=== PATIENT | male | born 1955 | race Caucasian/White ===

== ENCOUNTER 2022-07-28 14:03 | Outpatient (CLI) | payer MEDICARE, SELFPAY ==
--- NOTE | ~2022-07-28 | PE_ITS ---
EXAMINATION: PET_PETPSMAST_PT DATE: 07/28/2022 17:11 INDICATION: Prostate cancer TECHNIQUE: 5.611 mCi of pipflufolastat F-18 (18-F-DCFPyL) was administered i.v. Low dose computed to mography (CT) images were acquired from the base of the brain to the base of the brain to the proxima l thighs for attenuation correction and anatomic localization. Positron emission tomography (PET) wally ges were acquired in the same distribution beginning 70 minutes after injection. Images including fus ed PET/CT images were reconstructed in axial, coronal, and sagittal planes. Automated exposure contro l technique was employed. The dose-length product was 838.61mGy-cm. COMPARISON: None FINDINGS: Head/neck: Typical pattern of symmetric physiologic increased activity in the lacrimal, parotid and submandibula r glands as well as along the mucosa of the nasal cavity, oropharynx, nasopharynx hypopharynx and eso phagus. No pathologically enlarged cervical lymphadenopathy or suspicious foci of increased uptake in the visualized head or neck. Chest: Multiple bilateral calcified pulmonary nodules along calcified right hilar and mediastinal lymph node s consistent with old granulomatous disease. Mild discoid atelectasis in the bilateral lower lobes. N o pneumonia, suspicious pulmonary nodules, pulmonary edema or pleural effusion. Heart size is normal. Postoperative change of prior median sternotomy and coronary artery bypass grafting. There is also b een prior aortic valve repair. 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 No pathologically enlarged or PSMA avid thoracic lymphadenopathy. Bilateral gynecomastia. Abdomen/pelvis/proximal thighs: Physiologic renal accumulation and excretion of activity in the kidneys, bladder and along portions o f ureters. There are few low-attenuation and photopenic hepatic cysts the largest measuring 2.5 simil ar and 2.2 cm. Otherwise normal degree and slightly heterogenous pattern of increased uptake througho ut the liver and spleen without radiologic correlate or dominant PSMA avid lesion. The gallbladder, p ancreas and bilateral adrenal glands are normal. Moderate uptake scattered throughout the bowels with typical duodenal predominance and without radiologic correlate, also likely physiologic. Prominent i ncreased uptake throughout the prostate with maximal SUV of 55. There are at least 16 normal-sized PS MA avid retroperitoneal lymph nodes, the most cephalad in the aortocaval and left para-aortic region below level of the takeoff of the renal artery and extending caudally to the bilateral external iliac chains as well as a pararectal lymph node and a couple presacral lymph nodes. For reference the nam rectal lymph node measures 3 to 4 mm with maximal SUV of 27 and the presacral lymph nodes measure 6 m m and 5 mm with maximal SUV values of 56 and 61 respectively. The right external iliac chain lymph no de measures 10 x 6 mm with maximal SUV of 29 and the left external iliac chain lymph node measures 6 mm with maximal SUV of 7. The most intense aortocaval of the more cephalad lymph nodes measures 6 mm with maximal SUV of 20. No other abnormal foci of increased uptake or pathologically enlarged lymphad enopathy in the abdomen, pelvis or proximal thighs. Musculoskeletal: No suspicious lytic, blastic or PSMA avid bone lesions. IMPRESSION: 1. Prominent activity in the prostate consistent with provided history of prostate cancer with multip le normal sized but likely metastatic PSMA avid retroperitoneal lymph nodes in the pelvis and lower a bdomen. Reviewed, dictated and finalized at location A. OPERATOR IMPRESSION: 1. Prominent activity in the prostate consistent with provided history of prost ate cancer with multiple normal sized but likely met
== END 2022-07-28 14:04 | disposition home or self-care (01) ==
PROVIDERS: Visit Provider Urology
DX: C61 Malignant neoplasm of prostate (principal)
CPT/HCPCS: 78815; A9595

== ENCOUNTER 2022-08-30 09:07 | Outpatient (CLI) | payer MEDICARE, SELFPAY ==
[2022-08-30 09:41] LABS: Basophils Percent Auto 0.7 % (0.2-1.2); Eosinophils Absolute Auto 0.1 K/mm3 (0-0.3); Eosinophils Percent Auto 1.2 % (0-4.4); Hematocrit 46.4 % (42.0-52.0); Hemoglobin 15.8 g/dL (14.0-18.0); Immature Granulocyte Absolute 0.02 K/mm3 (0.00-0.031); Immature Granulocyte Percent A 0.3 % (0-0.5); Lymphocytes Absolute Auto 1.63 K/mm3 (0.9-3.2); Lymphocytes Percent Auto 27.6 % (18.3-44.2); Mean Corpuscular HGB Conc 34.1 g/dl (32-36); Mean Corpuscular Hemoglobin 31.9 pg (26-34); Mean Corpuscular Volume 93.7 fl (80-100); Mean Platelet Volume 10.3 fl (7.4-10.4); Monocytes Absolute Auto 0.5 K/mm3 (0.1-0.6); Monocytes Percent Auto 8.8 % (2.6-8.5); Neutrophils Absolute Auto 3.6 K/mm3 (1.3-6.7); Neutrophils Percent Auto 61.4 % (45.5-73.1); Platelet Count Result 168 k/mm3 (150-375); Red Blood Count 4.95 M/mm3 (4.6-6.20); Red Cell Distribution Width 12.5 % (11.5-14.5); White Blood Count 5.9 K/mm3 (4.5-10.0)
[2022-08-30 09:51] LABS: Anion Gap 3 mmol/L (8-16); Blood Urea Nitrogen 21 mg/dL (9-20); Carbon Dioxide 30 mmol/L (22-30); Chloride 108 mmol/L (98-107); Estimated Glomerular Filt Rate 55; Glucose 95 mg/dL (65-110); Potassium 5.1 mmol/L (3.4-5.0); Sodium 141 mmol/L (137-145)
[2022-08-30 09:54] LABS: INR 1.8; Partial Thromboplastin Time 33.4 SECONDS (22.3-36.8); Prothrombin Time 20.5 Seconds (11.1-14.7)
== END 2022-08-30 09:08 | disposition home or self-care (01) ==
PROVIDERS: Anesthesiology; Visit Provider Surgery
DX: C61 Malignant neoplasm of prostate (principal); Z79.899 Other long term (current) drug therapy; Z79.01 Long term (current) use of anticoagulants; Z01.818 Encounter for other preprocedural examination
CPT/HCPCS: 36415; 80048; 85025; 85610; 85730

== ENCOUNTER 2022-09-02 01:00 | Day surgery (SDC) | payer MEDICARE, SELFPAY ==
[2022-08-29 10:53] VITALS: BMI 27.6
--- NOTE | 2022-08-29 11:18 | PC.NURSE ---
PRE-OP INSTRUCTIONS, PLEASE READ CAREFULLY Report to the Outpatient Waiting Room, entrance under the green pavilion located off [facility], at time _0600_ on date _09/02/22_. Planned Procedure Time: _0730_. Time changes happen often and if your time is changed the preop area will call you the afternoon before. - You and your visitor will be asked to self-screen and do not enter if you have any COVID symptoms. - Only one visitor is requested with a max of two and NO children visitors are allowed at this time. - The patient visitor may be requested to leave or wait in car when not with patient due to distancing restrictions. - A mask is optional within the hospital at this time. Patients may have clear liquids (water, carbonated beverages, clear teas, apple juice) until 3 hours prior to surgery (0430 AM) with a maximum of 20 ounces. - No food from midnight until time of surgery Take the following medications with a SIP of water the morning of surgery: _AMLODIPINE, CARVEDILOL_ DO NOT STOP ANY OF YOUR OTHER PRESCRIPTION MEDICATIONS PRIOR TO SURGERY ?EXCEPT THE FOLLOWING Medications to discontinue per DR. BRINK - _PT STATES LAST DOSE OF COUMADIN TAKEN 08/28/22_ Please no make-up, nail turkmen, hairspray, perfume, deodorant, or body powder the day of surgery. No jewelry (including any body piercings) or valuables the day of surgery, leave them at home. Please take a shower or bath the night before, or the morning of, surgery with an antibacterial soap. Wear comfortable, loose fitting clothing. - Jewelry must be removed prior to entering the operating room. Rings and piercings that are not removed may be cut off. - The hospital will not accept responsibility for valuables. - Please leave all valuables, including medications, at home the day of surgery. If you are going home after surgery, a licensed taxi driver must drive you home. - NO public transportation without another adult if you receive anesthesia. - We recommend that an adult stay with you for 24 hours following discharge. - We also recommend that you do not drive, make important decision, drink alcoholic beverages, or take any drugs that were not prescribed by your health care provider for at least 24 hours after your discharge time. Follow any additional instructions given to you from your surgeon. If you or anyone in your household have experienced Covid symptoms in the past week, please notify your surgeon or the nurse liaison at the phone number below for possible testing. Telephone instructions given to _PATIENT_and asked if any additional questions and then verbalized understanding. Patient advised to call surgeon office or pre surgery nurse liaison [phone] if any additional questions.
--- NOTE | ~2022-09-02 | XR_ITS ---
EXAMINATION: XR chest port-a-cath/central DATE: 09/02/2022 08:53 INDICATION: Port placement. TECHNIQUE: A single frontal view of the chest was obtained. COMPARISON: PET/CT 07/28/2022 FINDINGS: Calcified pulmonary nodules are consistent with old granulomatous disease. There is mild at electasis in left lower lung zone. No pleural effusion or pneumothorax. The heart size is normal. Med dedrick sternotomy wires and mediastinal surgical clips are seen, likely from prior coronary artery bypas s grafting. There are prominent paracardial fat pads. There is a left subclavian port with tip at sup erior cavoatrial junction. The catheter is deviated between the clavicle and first rib. IMPRESSION: 1. Port tip at superior cavoatrial junction. Reviewed, dictated and finalized at location A.
--- NOTE | ~2022-09-02 | XR_ITS ---
EXAMINATION: XR fl guide central line place DATE: 09/02/2022 08:21 INDICATION: Port placement. TECHNIQUE: A single intraoperative fluoroscopic view of the chest was obtained. I was not present. Fl uoroscopy exposure time was 16 seconds. COMPARISON: PET/CT 07/28/2022 FINDINGS: There is a left-sided central venous catheter with tip at superior cavoatrial junction. Med dedrick sternotomy wires and mediastinal surgical clips are seen, likely from prior coronary artery bypas s grafting. IMPRESSION: 1. Catheter tip at superior cavoatrial junction. Reviewed, dictated and finalized at location A.
[2022-09-02 06:21] VITALS: BP 138/74; PULSE 65; RESP 20; TEMP 36.4; O2SAT 100
--- NOTE | 2022-09-02 06:35 | P.PNAN_ITS ---
Anes - Initial Pre Proc Eval Procedure: Operation Date: 09/02/22 07:30 Proposed Procedures p Insertion Patricia Cath - Cheo Ledesma MD Date/Time: 09/02/22 06:35 Surgeon: Cheo Ledesma MD Pre Op Diagnosis: Prostate Cancer Patient Data Age: 67 Gender: M Height: 1.88 m Weight: 97.72 kg Allergies Allergy/AdvReac Type Severity Reaction Status Date / Time No Known Allergies Allergy Verified 08/29/22 10:46 Home Medications Medication Instructions Recorded Confirmed Type amlodipine 5 mg tablet 5 mg QAM 08/29/22 09/01/22 History atorvastatin 40 mg tablet 40 mg HS 08/29/22 09/01/22 History carvedilol 6.25 mg tablet 6.25 mg BID 08/29/22 09/01/22 History darolutamide 300 mg tablet (Nubeqa) 600 mg PO BID 08/29/22 09/01/22 History hydrochlorothiazide 25 mg tablet 25 mg QAM 08/29/22 09/01/22 History losartan 100 mg tablet 100 mg QAM 08/29/22 09/01/22 History relugolix 120 mg tablet (Orgovyx) 120 mg PO QAM 08/29/22 09/01/22 History tamsulosin 0.4 mg capsule 0.4 mg PO HS 08/29/22 09/01/22 History warfarin 4 mg tablet 8 mg HS 08/29/22 09/01/22 History prednisone 5 mg tablet 5 mg PO BID 09/01/22 09/01/22 History Patient hx anesthesia problems: none Family hx anesthesia problems: none Results Review: All pre-operative results and documents have been reviewed as part of the pre- operative evaluation. FORMERLY [facility], [facility] Past Medical History Medical History (Updated 09/02/22 @ 06:35 by Ezequiel Elam MD) ZAKI (obstructive sleep apnea) Prostate CA Surgical History Surgical History H/O aortic valve replacement Social History Social History Smoking packs per day: 1 Smoking cigarettes per day: 20.0 Years smoked: 15 Smoking pack-years: 15.00 Smoking status: Former smoker Tobacco type: cigarettes Second hand tobacco smoke exposure: No Smoking end date: 06/19/89 Alcohol intake: current Alcohol use details: 2-3 DRINKS/MONTH Substance use: never Substance use type: does not use Living arrangements: alone Spiritual care concerns: No Anes - Eval Final PreProcedure Day of Procedure 09/02/22 06:35 Patient weight: overweight Heart: regular rate and rhythm Lungs: clear to auscultation Airway: Mallampati scale class II Neurological: alert and oriented Last oral intake: >/= 8 hours ASA classification: III Emergent: no Anesthetic plan: proceed Anesthesia type and monitoring: general GIVS and standard monitoring Results Review: All pre-operative results and documents have been reviewed as part of the pre- operative evaluation. Informed Consent: The patient's anesthetic plan and its attendant risks and benefits were discussed with the patient/family/POA. Questions were solicited and answers provided to the satisfaction of the patient/family/POA.
[2022-09-02] MEDS: LACTATED RINGERS 1,000 ML 30 ML IV CONT (06:55)
--- NOTE | 2022-09-02 07:11 | PM.IMHP ---
H&P: HPI History of Present Illness Date/Time: 09/02/22 07:11 Chief Complaint: Prostate CA Narrative: Pt with prostate CA set to get chemotherapy. Presents for placement of a portacatheter for the chemo. Hx of aortic valve replacement and is usually on Coumadin. He is currently being bridged with Lovenox but has not had any in the last 12 hrs. Review of Systems Review of Systems: The remainder of the review of systems to include constitutional, HEENT, cardiovascular, respiratory, GI, , integumentary, musculoskeletal, endocrine, immunologic, hematologic, psychiatric, and neurologic are all negative except for which is mentioned above in the HPI. FORMERLY [facility] Past Medical History Medical History ZAKI (obstructive sleep apnea) Prostate CA Surgical History Surgical History H/O aortic valve replacement Social History Social History Smoking packs per day: 1 Smoking cigarettes per day: 20.0 Years smoked: 15 Smoking pack-years: 15.00 Smoking status: Former smoker Tobacco type: cigarettes Second hand tobacco smoke exposure: No Smoking end date: 06/19/89 Alcohol intake: current Alcohol use details: 2-3 DRINKS/MONTH Substance use: never Substance use type: does not use Living arrangements: alone Spiritual care concerns: No Meds Home Medications and Allergies Home Medications Medication Instructions Recorded Confirmed Type amlodipine 5 mg tablet 5 mg [facility] 08/29/22 09/02/22 History atorvastatin 40 mg tablet 40 mg 08/29/22 09/02/22 History carvedilol 6.25 mg tablet 6.25 mg BID 08/29/22 09/02/22 History darolutamide 300 mg tablet (Nubeqa) 600 mg PO BID 08/29/22 09/02/22 History hydrochlorothiazide 25 mg tablet 25 mg QA 08/29/22 09/02/22 History losartan 100 mg tablet 100 mg QA 08/29/22 09/02/22 History relugolix 120 mg tablet (Orgovyx) 120 mg PO QA 08/29/22 09/02/22 History tamsulosin 0.4 mg capsule 0.4 mg PO 08/29/22 09/02/22 History warfarin 4 mg tablet 8 mg HS 08/29/22 09/01/22 History prednisone 5 mg tablet 5 mg PO BID 09/01/22 09/02/22 History Allergies Allergy/AdvReac Type Severity Reaction Status Date / Time No Known Allergies Allergy Verified 09/02/22 07:11 Exam Const: General: comfortable and no acute distress Neck: Neck: supple and no JVD Resp: Effort & Inspection: normal respiratory effort Auscultation: clear to auscultation bilaterally Cardio: Rate: regular rate Rhythm: regular rhythm GI: GI Palp: Yes Soft to palpation, No Firmness to palpation present (GI), No Tenderness to palpation present (GI), No Guarding due to palpation present (GI) and No Hernia present Other: Benign abd exam. Neuro: General: gait normal Speech: normal speech Sensory Exam: normal sensation Psych: Mental Status: mental status grossly normal Affect: normal affect Assessment and Plan Assessment and plan (1) Prostate CA: Code(s): C61 - Malignant neoplasm of prostate Status: Acute Assessment and Plan: Pt with prostate CA who is set to start chemotherapy. Will proceed with portacatheter placement today. Risks, benefits, indications, and expected outcomes discussed. Specific risk of iatrogenic pneumothorax and needing a chest tube placed and bleeding needing blood transfusion discussed.
[2022-09-02 07:16] LABS: INR 1.2; Prothrombin Time 14.4 Seconds (11.1-14.7)
--- NOTE | 2022-09-02 07:17 | WPDHPUPDATE1 ---
History and Physical Update Update Date/Time: 09/02/22 07:17 History and Physical has been reviewed, including an updated exam of the patient. There are NO changes in the patient's condition. Risks, benefits, and alternatives have been discussed and questions answered. Patient agrees to proceed with procedure.
[2022-09-02] MEDS: ceFAZolin 2 GM/D5W 50 ML 2 GM/50 ML BAG IVPB (07:29)
--- NOTE | 2022-09-02 07:35 | SUR.PREOP ---
0721-DR. BRINK AWARE OF PT RESULT, MAY PROCEED TO OR.
[2022-09-02] MEDS: BUPivacaine HCL 0.5% PF 30 ML VIAL INFILTRATE (07:53)
[2022-09-02] MEDS: HEPARIN SODIUM 1,000 UNITS/ML VIAL 1000 UNITS IV PUSH (08:15)
[2022-09-02] MEDS: HEPARIN SODIUM 5,000 UNITS/ML VIAL 5000 UNITS IRRIGATION (08:15)
[2022-09-02] MEDS: LIDO 1%/EPINEPHRINE 1:100,000 50 ML VIAL 30 ML INFILTRATE (08:20)
--- NOTE | 2022-09-02 08:40 | W.PM.PROC2 ---
Procedure Note - Detailed Date of Procedure 09/02/22 Pre-op Diagnosis Prostate Cancer Post-op Diagnosis Same Procedure Performed Placement of left subclavian vein single-lumen port catheter with intraoperative fluoroscopy. Surgeon Cheo Ledesma MD Camera Operator Tammy Whalen MECHANIST Anesthesia MAC Indications Patient is a 67-year-old gentleman who is to undergo chemotherapy treatments for prostate cancer. He presents now for placement of shoshana catheter. Findings None. Description of Procedure After informed consent was obtained patient was brought to the operating room was placed supine position and IV sedation with LMA was administered by anesthesia. Time-out was then performed correctly identifying the patient as well as procedure to be performed. He was given Ancef for perioperative IV antibiotics. We approach placement the shoshana catheter into the left-sided upper chest region. I 1st attempted placement of the catheter into the internal jugular vein but was unsuccessful on the passes of the needle to cannulate left subclavian vein. I then switched to cannulated the subclavian vein and was successful in cannulating the left subclavian 1st pass without difficulty. There was prompt return of dark venous appearing blood. A guidewire was then advanced through the needle into the left subclavian vein and down into his to superior vena cava. Intraoperative fluoroscopy was then used to visualize the tip of the guidewire and it was in the proper position in the superior vena cava. I then created the subcutaneous port pocket in the left upper anterior chest just below the medial 3rd of the clavicle. A transverse incision was made the scalpel dissection was carried down through the subcutaneous tissues electrocautery to the anterior right pectoralis fascia. Then with blunt finger dissection created subcu port pocket in this plane. I then advanced a dilator breakaway sheath over the guidewire. The dilator and wire were removed leaving the sheath in place. A 9.6 Bulgarian single-lumen catheter was advanced through the sheath into the left subclavian vein insufflated down into the right atrium via the superior vena cava. Intraoperative fluoroscopy was then used once more to visualize the tip of the catheter and then I pulled back on the catheter until the tip was in the atriocaval junction. The catheter was then cut to the appropriate length the skin level and attached to the Smart Port. The port was then secured in subcutaneous port pocket with 3-0 Prolene sutures. I then accessed the port it aspirated blood easily and was flushed with heparinized saline solution. I irrigated the subcutaneous tissues in the port pocket with saline solution. Hemostasis was good. I then injected 1% lidocaine mixed with 0.5% Marcaine around the incision for local anesthetic effect. I then close incision utilizing interrupted 3-0 Vicryl sutures in subcutaneous tissues. The skin edges were approximated utilizing a running subcuticular 4 Monocryl suture. I then accessed the port percutaneously and again bhavana back blood easily and was flushed with 5000units of heparin IV. The incision was cleaned and then skin glue was applied. The patient tolerated the procedure well no complications. All sponges, needles, and instrument counts were correct at the end procedure. EBL was _15__cc. The patient was awakened and taken to recovery in stable and satisfactory condition. Postprocedure portable chest x-ray is pending at the time of dictation. Implants 9.6 Bulgarian single-lumen catheter attached to Smart Port Estimated Blood Loss 15 Drains No Packing No Pathology None sent Complications No immediate complications Condition Stable Disposition PACU [facility] Billing Surgery - Charge Forward: Surgery Billing
[2022-09-02 08:41] VITALS: BP 134/80; PULSE 91; RESP 14; O2SAT 98
[2022-09-02 09:10] VITALS: BP 133/76; PULSE 89; RESP 14; O2SAT 97
[2022-09-02 09:40] VITALS: BP 127/73; PULSE 63; RESP 14
== END 2022-09-02 10:07 | disposition home or self-care (01) ==
PROVIDERS: Visit Provider Surgery
PROC: (CPT 36561; principal; 2022-09-02 07:30)
DX: C61 Malignant neoplasm of prostate (principal); G47.33 Obstructive sleep apnea (adult) (pediatric); Z95.4 Presence of other heart-valve replacement; Z79.01 Long term (current) use of anticoagulants; Z87.891 Personal history of nicotine dependence
CPT/HCPCS: 36561; 36415; 77001; 80048; 85025; 85610; 85730; C1788; J0690; J1644; J2250; J2405; J2704; J3010; J7030; J7120

== ENCOUNTER 2022-11-01 13:04 | Outpatient (CLI) | payer MEDICARE, SELFPAY ==
--- NOTE | ~2022-11-01 | PE_ITS ---
EXAMINATION: PET_PETPSMAST_PT DATE: 11/01/2022 15:40 INDICATION: Prostate cancer restaging TECHNIQUE: 9.289 mCi of pipflufolastat F-18 (18-F-DCFPyL) was administered i.v. Low dose computed to mography (CT) images were acquired from the base of the brain to the base of the brain to the proxima l thighs for attenuation correction and anatomic localization. Positron emission tomography (PET) wally ges were acquired in the same distribution beginning 106 minutes after injection. Images including fu sed PET/CT images were reconstructed in axial, coronal, and sagittal planes. Automated exposure contr ol technique was employed. The dose-length product was 879.68mGy-cm. COMPARISON: 07/29/2022 FINDINGS: Head/neck: Typical pattern of symmetric physiologic increased activity in the lacrimal, parotid and submandibula r glands as well as along the mucosa of the nasal and oral cavities, the bri-, naso- and hypopharynx, the glottis and esophagus. No pathologically enlarged cervical lymphadenopathy or suspicious foci of increased uptake in the visualized head or neck. Chest: A few scattered small calcified pulmonary nodules along with calcified right hilar and mediastinal ly mph nodes consistent with old granulomatous disease. 4 mm nodule which is not definitively calcified superior segment of the right lower lobe without evident PSMA activity. Mild bibasilar and dependent atelectasis. No pneumonia, pulmonary edema or pleural effusion. Heart size is normal. Atherosclerotic coronary artery calcifications unchanged prior mediastinal main coronary artery bypass grafting. The re is also been prior aortic valve repair. Left subclavian central venous port catheter with distal t ip at the superior cavoatrial junction. Unchanged mild fusiform aneurysm of the ascending thoracic ao rta which measures up to 4.2 cm. No pathologically enlarged or PSMA avid thoracic lymphadenopathy. M ild bilateral gynecomastia. Abdomen/pelvis/proximal thighs: Physiologic renal accumulation and excretion of activity in the kidneys, bladder and along portions o f ureters. Photopenic defects associated with a couple low-attenuation hepatic cysts the largest 2 me asuring 2.8 cm and 2.5 cm which is not significantly changed. Otherwise normal degree and slightly he terogenous pattern of increased uptake throughout the liver and spleen without radiologic correlate o r dominant PSMA avid lesion. The gallbladder, pancreas and bilateral adrenal glands are normal. Moder ate uptake scattered throughout the bowels with typical duodenal and proximal jejunal predominance an d without radiologic correlate, also likely physiologic. There is decreased size and degree of FDG up take in the prostate which previously measured 4.4 x 4.2 cm with maximal severe 54.9 to currently jorge suring 2.8 x 3.1 cm with maximal SUV of 12.5 consistent with interval response to treatment. Also con sistent with interval response to treatment is resolution of the prior abnormal PSMA uptake associate d with majority of the 16 previously noted retroperitoneal lymph nodes which appears subjectively dec reased in size. The majority the remaining too small for accurate measurement. The previous largest P SA may avid lymph node along the right external iliac chain which measured 10 x 6 mm with maximal SUV of 29 has decreased to 5 x 3 mm with maximal SUV of 5.4. The maximal SUV of the previously noted 6 m m left external iliac chain node has decreased from 7.2 to currently 3.5 and measures 4 mm. No other new abnormal foci of increased uptake or pathologically enlarged lymphadenopathy in the abdomen, pelv is or proximal thighs. Musculoskeletal: No suspicious lytic, blastic or PSMA abdomen bone lesions. IMPRESSION: 1. Interval decrease in size of the prostate and significant decrease in the degree of prostatic PSMA uptake consistent with response to treatment of a reported primary prostate cancer. 2. Decrease in size in
== END 2022-11-01 13:05 | disposition home or self-care (01) ==
PROVIDERS: Visit Provider Internal Medicine Hematology & Oncology
DX: C61 Malignant neoplasm of prostate (principal)
CPT/HCPCS: 78815; A9595

== ENCOUNTER 2023-01-06 08:41 | Outpatient (CLI) | payer MEDICARE, SELFPAY ==
--- NOTE | ~2023-01-06 | CT_ITS ---
EXAMINATION: CT abdomen pelvis w con DATE: 01/06/2023 09:17 INDICATION: Prostate cancer TECHNIQUE: Computed tomography (CT) of the abdomen and pelvis was performed with 100 CC Omnipaque 350 intravenous contrast. Automated exposure control and iterative reconstruction technique were employe d. Exam dose: 998.24 mGy-cm total exam DLP. COMPARISON: 11/01/2022 PET/CT [facility] FINDINGS: Bilateral calcified pulmonary granulomas consistent with old granulomatous disease. Mild di scoid atelectasis or scarring at the lung bases, left greater than right. Status post sternotomy and aortic valve replacement. Cardiomegaly. No pericardial effusion. Retained epicardial pacemaker wires. Mild gynecomastia. Small sliding hiatal hernia. There are numerous hepatic cysts of variable size, the largest approximately 2.6 cm. No suspicious he patic space-occupying mass lesion is noted. The gallbladder is present. No gallbladder wall thickening or pericholecystic fluid or fat stranding. No bile duct or pancreatic duct dilatation. No pancreatic mass lesion or calcification. The spleen ap pears normal. Normal morphology of the adrenal glands. No renal mass lesion or urinary tract calculus or hydroureteronephrosis. Since 11/01/2022 there is new prominent left periureteral soft tissue fluid and stranding particularly at the L5-S1 level, extending laterally into the left lower quadrant. The urinary bladder is unremarkable. Mild prostate enlargement. Small bilateral fat-containing inguinal hernias and very small fat-containing umbilical hernia. There is abdominal aortic calcification and calcification at the origins of the superior mesenteric a nd renal arteries and inferior mesenteric artery. No abdominal aortic aneurysm. No intraperitoneal or retroperitoneal or pelvic mass lesion or adenopathy or ascites is detected. No suspicious osteolytic or osteoblastic lesions. IMPRESSION: Prominent left periureteral fluid/stranding, extending into the left lower quadrant, new since 11/01/2022 No interval abdominal or pelvic mass or lymphadenopathy is noted since 11/01/2022 Reviewed, dictated and finalized at [facility]. Reviewed, dictated and finalized at location B. IMPRESSION: Prominent left periureteral fluid/stranding, extending into the le ft lower quadrant, new since 11/01/2022 No interval abdominal or pelvic mass or lymphadenopathy is noted since 3
== END 2023-01-06 08:42 | disposition home or self-care (01) ==
PROVIDERS: Referring Provider Urology; Visit Provider Internal Medicine Hematology & Oncology
DX: C61 Malignant neoplasm of prostate (principal)
CPT/HCPCS: 74177; Q9967

== ENCOUNTER 2023-02-23 03:52 | Day surgery (SDC) | payer MEDICARE, SELFPAY ==
[2023-02-21 14:45] VITALS: BMI 27.7
--- NOTE | 2023-02-21 15:09 | PC.NURSE ---
Report to the Outpatient Waiting Room, entrance under the green pavilion located off [facility], at time __11:15AM on date __02/23/23 . Planned Procedure Time: __1:15PM . Time changes happen often and if your time is changed the preop area will call you the afternoon before. - You and your visitor will be asked to self-screen and do not enter if you have any COVID symptoms. - A mask is optional within the hospital at this time. Patients may have clear liquids (water, carbonated beverages, clear teas, apple juice) until 3 hours prior to surgery with a maximum of 20 ounces. - No food from midnight until time of surgery. Take the following medications with a SIP of water the morning of surgery: __AMLODIPINE, CARVEDILOL, CEPHALEXIN DO NOT STOP ANY OF YOUR OTHER PRESCRIPTION MEDICATIONS PRIOR TO SURGERY ?EXCEPT THE FOLLOWING Medications to discontinue per physician ___HOLD COUMADIN 5 DAYS PRE-OP- LAST DOSE 02/17/23 HOLD ALL VITAMINS/SUPPLEMENTS 3 DAYS PRE-OP- LAST DOSE 02/20/23 Please no make-up, nail scottish, hairspray, perfume, deodorant, or body powder the day of surgery. No jewelry (including any body piercings) or valuables the day of surgery, leave them at home. Please take a shower or bath the night before, or the morning of, surgery with an antibacterial soap. Wear comfortable, loose fitting clothing. Children are encouraged to wear pajamas. - Jewelry must be removed prior to entering the operating room. Rings and piercings that are not removed may be cut off. - The hospital will not accept responsibility for valuables. - Please leave all valuables, including medications, at home the day of surgery. If you are going home after surgery, a licensed driver merchandiser must drive you home. - NO public transportation without another adult if you receive anesthesia. - We recommend that an adult stay with you for 24 hours following discharge. - We also recommend that you do not drive, make important decision, drink alcoholic beverages, or take any drugs that were not prescribed by your health care provider for at least 24 hours after your discharge time. Follow any additional instructions given to you from your surgeon. If you or anyone in your household have experienced Covid symptoms in the past week, please notify your surgeon or the nurse liaison at the phone number below for possible testing. Telephone instructions given to __PATIENT and asked if any additional questions and then verbalized understanding. Patient advised to call surgeon office or pre surgery nurse liaison [phone] if any additional questions.
--- NOTE | 2023-02-21 16:42 | PM.SD2 ---
Same Day Admit/Disch: HPI History of Present Illness Chief complaint: Port-A-Cath dysfunction Narrative: Brenden Shankar is a 67 year old male who was diagnosed with stage IV prostate cancer. He had a left subclavian Port-A-Cath placed last August. He had been using it for chemotherapy but started experiencing pain. His oncologist noticed some swelling and redness associated with the Port-A-Cath. He has not had fever or chills. He was started on cephalexin and is taken to surgery now for Port-A-Cath removal. COUNTS INCLUDE 234 BEDS AT THE [facility] Past Medical History Medical History (Updated 02/23/23 @ 15:01 by Mohan Aguilera MD) ZAKI (obstructive sleep apnea) Prostate CA Surgical History Surgical History (Updated 02/23/23 @ 15:01 by Mohan Aguilera MD) H/O aortic valve replacement Port-A-Cath in place Placement of left subclavian vein single-lumen port catheter with intraoperative fluoroscopy on 09/02/22. Family History Family History Father Hypertension Heart disease Cerebrovascular accident Mother Hypertension Heart disease Sibling Heart disease Social History Social History Smoking packs per day: 1 Smoking cigarettes per day: 20.0 Years smoked: 18 Smoking pack-years: 18.00 Smoking status: Former smoker Tobacco type: cigarettes Second hand tobacco smoke exposure: No Smoking end date: 12/17/94 Alcohol intake: current Alcohol use details: 2-3 DRINKS/MONTH Substance use: never Substance use type: does not use Lack of Transportation: No Lack of Food: Never True Current Housing: I Have Housing Concerned About Future Housing: No Difficulty Paying Gas/Electric Bills: No Difficulty Paying for Meds: No Currently Unemployed: No Education: High School Diploma/GED Difficulty w/ Childcare or Family Care: No Living arrangements: alone Gender identity (if verbalized by the patient): Male Sexual Orientation (if Verbalized by the Patient): Straight or Heterosexual Spiritual care concerns: No Same Day Admit/Disch: Med Pre-admit Medications Home Medications Medication Instructions Recorded Confirmed Type amlodipine 5 mg tablet 5 mg PO QAM 08/29/22 02/23/23 History atorvastatin 40 mg tablet 40 mg PO HS 08/29/22 02/23/23 History carvedilol 6.25 mg tablet 6.25 mg PO BID 08/29/22 02/23/23 History darolutamide 300 mg tablet (Nubeqa) 600 mg PO BID 08/29/22 02/23/23 History losartan 100 mg tablet 100 mg PO QAM 08/29/22 02/23/23 History relugolix 120 mg tablet (Orgovyx) 120 mg PO QAM 08/29/22 02/23/23 History tamsulosin 0.4 mg capsule 0.4 mg PO HS 08/29/22 02/23/23 History warfarin 4 mg tablet 8 mg PO DAILY 08/29/22 02/23/23 History mupirocin 2 % topical ointment 1 applic topical .COMPLEX #22 grams 12/16/22 02/23/23 Rx aspirin 81 mg tablet,delayed 162 mg PO DAILY 02/21/23 02/23/23 History release cholecalciferol (vitamin D3) 50 50 mcg PO DAILY 02/21/23 02/23/23 History mcg (2,000 unit) capsule lactobacillus combination no.8 3 3 cell PO DAILY 02/21/23 02/23/23 History billion cell capsule warfarin 1 mg tablet 1 mg PO 3XW 02/21/23 02/23/23 History zinc gluconate 30 mg tablet 30 mg PO DAILY 02/21/23 02/23/23 History oxycodone-acetaminophen 5 mg-325 0.5 - 1 tablet PO Q6H PRN pain #15 02/23/23 Rx mg tablet tabs Review of Systems Review of Systems All systems reviewed & are unremarkable except as noted in HPI and below (HPI and those items noted below) Constitutional Constitutional: Denies chills and Denies fever(s) Cardiovascular Cardiovascular: Denies chest pain, Denies diaphoresis, Denies dyspnea and Denies paroxysmal nocturnal dyspnea Respiratory Respiratory: Denies chest congestion, Denies cough and Denies dyspnea Integumentary/Breasts Skin/Breast: Denies lesions and Denies rash Exam Const: General: comfortable, no acute distress, alert and awake HENMT: Head: normocephal
[2023-02-23 11:10] VITALS: BP 152/79; PULSE 69; RESP 18; TEMP 36.4; O2SAT 99
[2023-02-23] MEDS: LACTATED RINGERS 1,000 ML 30 ML IV CONT (12:08)
[2023-02-23 12:30] LABS: INR 1.1; Prothrombin Time 14.3 Seconds (11.1-14.7)
[2023-02-23 12:31] LABS: Partial Thromboplastin Time 28.2 SECONDS (22.3-36.8)
--- NOTE | 2023-02-23 12:42 | WPDANESEPPF ---
Anes - Initial Pre Proc Eval Procedure: Operation Date: 02/23/23 13:15 Proposed Procedures p Removal Patricia Cath - Mohan Aguilera MD Date/Time: 02/23/23 12:42 Surgeon: Mohan Aguilera MD Pre Op Diagnosis: Port-A-Cath dysfunction Patient Data Age: 67 Gender: M Height: 1.88 m Weight: 99.8 kg Last Vital Signs Temp 97.6 F 02/23/23 11:10 Pulse 69 02/23/23 11:10 Resp 18 02/23/23 11:10 BP 152/79 H 02/23/23 11:10 Pulse Ox 99 02/23/23 11:10 O2 Del Method Room Air 02/23/23 11:10 Allergies Allergy/AdvReac Type Severity Reaction Status Date / Time No Known Allergies Allergy Verified 02/23/23 11:51 Home Medications Medication Instructions Recorded Confirmed Type amlodipine 5 mg tablet 5 mg PO QAM 08/29/22 02/23/23 History atorvastatin 40 mg tablet 40 mg PO HS 08/29/22 02/23/23 History carvedilol 6.25 mg tablet 6.25 mg PO BID 08/29/22 02/23/23 History darolutamide 300 mg tablet (Nubeqa) 600 mg PO BID 08/29/22 02/23/23 History losartan 100 mg tablet 100 mg PO QAM 08/29/22 02/23/23 History relugolix 120 mg tablet (Orgovyx) 120 mg PO QAM 08/29/22 02/23/23 History tamsulosin 0.4 mg capsule 0.4 mg PO HS 08/29/22 02/23/23 History warfarin 4 mg tablet 8 mg PO DAILY 08/29/22 02/23/23 History mupirocin 2 % topical ointment 1 applic topical .COMPLEX #22 grams 12/16/22 02/23/23 Rx aspirin 81 mg tablet,delayed 162 mg PO DAILY 02/21/23 02/23/23 History release cephalexin 500 mg capsule 500 mg PO QID 02/21/23 02/23/23 History cholecalciferol (vitamin D3) 50 50 mcg PO DAILY 02/21/23 02/23/23 History mcg (2,000 unit) capsule lactobacillus combination no.8 3 3 cell PO DAILY 02/21/23 02/23/23 History billion cell capsule warfarin 1 mg tablet 1 mg PO 3XW 02/21/23 02/23/23 History zinc gluconate 30 mg tablet 30 mg PO DAILY 02/21/23 02/23/23 History Laboratory Tests 02/23/23 12:08 PT 14.3 Seconds (11.1-14.7) INR 1.1 APTT 28.2 SECONDS (22.3-36.8) Patient hx anesthesia problems: none Family hx anesthesia problems: none Results Review: All pre-operative results and documents have been reviewed as part of the pre-operative evaluation. REPLACED BY [facility] Past Medical History Medical History ZAKI (obstructive sleep apnea) Prostate CA Surgical History Surgical History H/O aortic valve replacement Port-A-Cath in place Placement of left subclavian vein single-lumen port catheter with intraoperative fluoroscopy on 09/02/22. Family History Family History Father Hypertension Heart disease Cerebrovascular accident Mother Hypertension Heart disease Sibling Heart disease Social History Social History Smoking packs per day: 1 Smoking cigarettes per day: 20.0 Years smoked: 18 Smoking pack-years: 18.00 Smoking status: Former smoker Tobacco type: cigarettes Second hand tobacco smoke exposure: No Smoking end date: 12/17/94 Alcohol intake: current Alcohol use details: 2-3 DRINKS/MONTH Substance use: never Substance use type: does not use Lack of Transportation: No Lack of Food: Never True Current Housing: I Have Housing Concerned About Future Housing: No Difficulty Paying Gas/Electric Bills: No Difficulty Paying for Meds: No Currently Unemployed: No Education: High School Diploma/GED Difficulty w/ Childcare or Family Care: No Living arrangements: alone Spiritual care concerns: No Anes - Eval Final PreProcedure Day of Procedure 02/23/23 12:42 Patient weight: normal Heart: regular rate and rhythm Lungs: clear to auscultation Airway: Mallampati scale class II Neurological: alert and oriented Last oral intake: >/= 8 hours ASA classification: III Emergent: no Anesthetic plan: proceed Anesthesia type and chris
--- NOTE | 2023-02-23 13:04 | WPDHPUPDATE1 ---
History and Physical Update Update Date/Time: 02/23/23 13:04 History and Physical has been reviewed, including an updated exam of the patient. There are NO changes in the patient's condition. Risks, benefits, and alternatives have been discussed and questions answered. Patient agrees to proceed with procedure.
[2023-02-23] MEDS: ceFAZolin 2 GM/D5W 50 ML 2 GM/50 ML BAG IVPB (13:20)
[2023-02-23] MEDS: BUPIVACAINE/EPINEPHRINE 0.25% 50 ML VIAL 30 ML INFILTRATE (13:44)
--- NOTE | 2023-02-23 14:18 | PCWOUND ---
WOCN NOTE Dr Aguilera reports wound is on the left chest from port a cath removal. area was infected. wound measures 5 cm in length by 2 cm in width by 1.5 cm in depth with undermining of 6.5 cm.
[2023-02-23 14:20] VITALS: BP 116/66; PULSE 73; RESP 14; O2SAT 97
--- NOTE | 2023-02-23 14:30 | SUR.OPER ---
Tissue culture sent with CLARENCE Hubbard and received in microbiology by Brittany
[2023-02-23 14:50] VITALS: BP 128/72; PULSE 61; RESP 14
--- NOTE | 2023-02-23 15:02 | W.PM.PROC2 ---
Procedure Note - Detailed Date of Procedure 02/23/23 Pre-op Diagnosis Port-A-Cath dysfunction Post-op Diagnosis Other (Port-A-Cath infection) Procedure Performed Removal left subclavian Port-A-Cath Surgeon Mohan Aguilera MD [employer] Super[employer] Tammy Whalen [facility] Anesthesia MAC and Local (0.5% Marcaine with epinephrine) Indications Patient was receiving chemotherapy for metastatic prostate cancer. He has completed his chemotherapy but noticed redness swelling and pain associated with his left subclavian Port-A-Cath. He was started on cephalexin by his oncologist and referred for Port-A-Cath removal. He is taken to surgery now for this purpose. Findings While there was no reddy purulent fluid in the Port-A-Cath cavity, there was a lot of necrotic subcutaneous and no capsule around the Port-A-Cath. The necrotic tissue was debrided. Some was sent for tissue culture. There was quite a bit of bleeding likely due to the inflammation associated with infection. The wound was packed as it was high risk for wound infection and for bleeding if the wound was closed primarily. Description of Procedure The patient was taken to surgery and sedation was administered. The left subclavian area was prepped and draped. Local was infiltrated into the skin all around the previous incision. It was obvious there was a communication to the skin from the subcutaneous pocket as some infiltration of local would come out through this opening at the lateral aspect of the previous incision. Once local had been infiltrated thoroughly, an elliptical incision was made encompassing the entire old surgical scar. On dissecting below the skin, it was obvious that there was acute and chronic inflammation. I excised the skin and a little bit of the subcutaneous. There was debris suggestive of necrotic subcutaneous in the wound. I dissected down to the Port-A-Cath. There was no fibrous capsule around the Port-A-Cath as I think the infectious process had disrupted or otherwise eradicated it. There was a quite a bit of this necrotic delgado/brown tissue around the Port-A-Cath and directly under the wound. I debrided most of it and sent some for tissue culture. There were no pockets of purulent fluid. The wound bled much more than usual due to the inflammation and infection.. I used cautery to control the bleeding but it would frequently restart in the dermis or subcutaneous. Once the bleeding was controlled, I irrigated the wound with dilute peroxide saline irrigation. I was hopeful to close the wound with a drain in place. However bleeding continued to occur. Some bleeding occurred under the superior aspect of the incision at the muscular level. Additional bleeding was coming from the pocket. It seemed we had this controlled and I placed a 10 [place] Sami drain coming out of the skin below the pocket. The wound would still intermittently bleed and I think some of the bleeding was coming from the drain placement. With this much oozing of blood, the drain would clearly clot off in very little time. The drain was removed. I held pressure on the pocket and the drain site. The wound, then, was as dry as it had been. I felt that there was still the risk of further bleeding as well as the risk of infection. With these risks, I felt it would be best to pack the wound and allow it to close secondarily, probably with a wound VAC. I then packed the wound with 2 in iodoform Nu Gauze. The wound was then dressed with bulky fluff dressing and Medipore tape. The patient was awakened and taken to outpatient surgery in good condition. Sponge and needle counts were correct x2. Estimated Blood Loss -20.0 Drains No Packing Yes (2 in iodoform Nu Gauze) Pathology Other (Subcutaneous tissue sent for tissue culture) Complications No immediate complications Condition Stable Disposition Same day [facility] Billing Surgery - Charge Forward: Surgery Billing (Removal left subclavian Smart Port CT)
== END 2023-02-23 15:15 | disposition home or self-care (01) ==
PROVIDERS: Anesthesiology; Visit Provider Surgery
PROC: (CPT 36589; principal; 2023-02-23 13:15)
DX: T80.212A Local infection due to central venous catheter, initial encounter (principal); C61 Malignant neoplasm of prostate; C77.5 Secondary and unspecified malignant neoplasm of intrapelvic lymph nodes; Y83.8 Other surgical procedures as the cause of abnormal reaction of the patient, or of later complication, without mention of misadventure at the time of the procedure; I10 Essential (primary) hypertension; G47.33 Obstructive sleep apnea (adult) (pediatric); Z95.2 Presence of prosthetic heart valve; Z87.891 Personal history of nicotine dependence; Z79.01 Long term (current) use of anticoagulants; Z79.82 Long term (current) use of aspirin; Z79.891 Long term (current) use of opiate analgesic
CPT/HCPCS: 36590; 36415; 85610; 85730; 87070; 87075; 87205; A9270; J0690; J2250; J2704; J3010; J7120

== ENCOUNTER 2023-04-13 07:07 | Outpatient (CLI) | payer MEDICARE, SELFPAY ==
--- NOTE | ~2023-04-13 | NM_ITS ---
EXAMINATION: NM bone scan whole body DATE: 04/13/2023 10:14 INDICATION: Prostate cancer TECHNIQUE: 26.5 mCi Tc-99m HDP was administered intravenously. Delayed whole-body scintigrams were o btained. COMPARISON: CT abdomen pelvis dated 01/06/2023 and [facility] PET studies dated 11/01/2022 FINDINGS: Typical pattern of likely degenerative mild joint centered uptake at the bilateral sternoclavicular j oints, the right acromioclavicular joint, right first metacarpophalangeal joint and at the patellae o f the bilateral knees. No other suspicious foci of abnormal bone uptake to suggest metastatic disease . IMPRESSION: 1. No evident osseous metastatic disease. Reviewed, dictated and finalized at location A.
== END 2023-04-13 07:08 | disposition home or self-care (01) ==
PROVIDERS: Visit Provider Urology
DX: C61 Malignant neoplasm of prostate (principal)
CPT/HCPCS: 78306; A9503

== ENCOUNTER 2023-04-27 07:24 | Outpatient (RCR) | payer MEDICARE, SELFPAY ==
[2023-02-27 08:30] VITALS: BMI 27.6
== END 2023-05-15 09:50 | disposition home or self-care (01) ==
LOC: ANHWOC 07:24
PROVIDERS: Visit Provider Surgery
DX: T81.31XD Disruption of external operation (surgical) wound, not elsewhere classified, subsequent encounter (principal)
CPT/HCPCS: 97605; 99213; G0463

== ENCOUNTER 2024-02-11 15:32 | Emergency (ER) | payer MEDICARE, SELFPAY ==
[2024-02-11 15:54] VITALS: BP 163/83; PULSE 79; RESP 16; TEMP 37.2; O2SAT 99
--- NOTE | 2024-02-11 20:26 | ED.SKABFB ---
HPI - Skin/Abscess/Foreign Bdy General Chief complaint: Skin/Abscess/Foreign Body <Maggie West PA-C - Last Filed: 02/12/24 02:36> Stated complaint: facial s welling <Maggie West PA-C - Last Filed: 02/12/24 02:36> Time Seen by Provider: 02/11/24 20:26 <Maggie West PA-C - Last Filed: 02/12/24 02:36> Focused HPI: This is a 68-year-old male that presents to the emergency department for redness and swelling to the right side of the face. Reports recently being treated for cellulitis on this same side of his face. He had finished a course of cephalexin. His symptoms returned this morning. Denies fevers. GENERAL: Well-appearing, well-nourished, and in no acute distress. HEAD: Normocephalic, atraumatic. Well demarcated erythema to the right side of the face CHEST: Clear to auscultation. ?No respiratory distress. HEART: Regular rate and rhythm.? NEURO: ?Alert and oriented x3. Patient screened in triage and initial orders placed.? ?Additional care and disposition to be based upon?diagnostic testing and treatment. <Maggie West PA-C - Last Filed: 02/12/24 02:36> Focused HPI: This is a 68-year-old male that presents to the emergency department for redness and swelling to the right side of the face. Reports recently being treated for cellulitis on this same side of his face. He had finished a course of cephalexin. His symptoms returned this morning. Denies fevers. Denies any difficulty breathing. GENERAL: Well-appearing, well-nourished, and in no acute distress. HEAD: Normocephalic, atraumatic. Well demarcated erythema to the right side of the face CHEST: Clear to auscultation. ?No respiratory distress. HEART: Regular rate and rhythm.? NEURO: ?Alert and oriented x3. Patient screened in triage and initial orders placed.? ?Additional care and disposition to be based upon?diagnostic testing and treatment. <Ciera Segura MD - Last Filed: 02/11/24 21:55> Related Data Home medications: Home Medications Medication Instructions Recorded Confirmed amlodipine 5 mg tablet 5 mg PO QAM 08/29/22 05/18/23 atorvastatin 40 mg tablet 40 mg PO HS 08/29/22 05/18/23 carvedilol 6.25 mg tablet 6.25 mg PO BID 08/29/22 05/18/23 darolutamide 300 mg tablet (Nubeqa) 600 mg PO BID 08/29/22 05/18/23 losartan 100 mg tablet 100 mg PO QAM 08/29/22 05/18/23 relugolix 120 mg tablet (Orgovyx) 120 mg PO QAM 08/29/22 05/18/23 tamsulosin 0.4 mg capsule 0.4 mg PO HS 08/29/22 05/18/23 warfarin 4 mg tablet 8 mg PO DAILY 08/29/22 05/18/23 cholecalciferol (vitamin D3) 50 50 mcg PO DAILY 02/21/23 05/18/23 mcg (2,000 unit) capsule lactobacillus combination no.8 3 3 cell PO DAILY 02/21/23 05/18/23 billion cell capsule warfarin 1 mg tablet 1 mg PO 3XW 02/21/23 05/18/23 zinc gluconate 30 mg tablet 30 mg PO DAILY 02/21/23 05/18/23 <Maggie West PA-C - Last Filed: 02/12/24 02:36> Allergies/Adverse reactions: Allergies Allergy/AdvReac Type Severity Reaction Status Date / Time No Known Allergies Allergy Verified 02/11/24 15:34 <Maggie West PA-C - Last Filed: 02/12/24 02:36> Review of Systems Review of Systems: All systems are reviewed and are negative unless stated otherwise in the HPI. <Ciera Segura MD - Last Filed: 02/11/24 21:55> All systems reviewed & are unremarkable except as noted in HPI and below <Maggie West PA-C - Last Filed: 02/12/24 02:36> PMFSH Past Medical History Medical History: Medical History ZAKI (obstructive sleep apnea) Prostate CA <Maggie West PA-C - Last Filed: 02/12/24 02:36> Surgical History Surgical History: Surgical History H/O aortic valve replacement Port-A-Cath in place Placement of left subclavian vein single-lumen port catheter with intraoperative fluoroscopy on 09/02/22. <Maggie West PA-C - Last Filed: 08
[2024-02-11 20:45] VITALS: BP 170/81; PULSE 76; RESP 17; TEMP 37.6; O2SAT 100
[2024-02-11 20:56] LABS: Basophils Percent Auto 0.2 % (0.2-1.2); Eosinophils Percent Auto 0.1 % (0-4.4); Hematocrit 40.1 % (42.0-52.0); Hemoglobin 13.8 g/dL (14.0-18.0); Immature Granulocyte Absolute 0.03 K/mm3 (0.00-0.031); Immature Granulocyte Percent A 0.3 % (0-0.5); Lymphocytes Absolute Auto 0.85 K/mm3 (0.9-3.2); Lymphocytes Percent Auto 8.7 % (18.3-44.2); Mean Corpuscular HGB Conc 34.4 g/dl (32-36); Mean Corpuscular Hemoglobin 32.2 pg (26-34); Mean Corpuscular Volume 93.7 fl (80-100); Mean Platelet Volume 10.8 fl (7.4-10.4); Monocytes Absolute Auto 0.7 K/mm3 (0.1-0.6); Monocytes Percent Auto 7.1 % (2.6-8.5); Neutrophils Absolute Auto 8.1 K/mm3 (1.3-6.7); Neutrophils Percent Auto 83.6 % (45.5-73.1); Platelet Count Result 157 k/mm3 (150-375); Red Blood Count 4.28 M/mm3 (4.6-6.20); Red Cell Distribution Width 12.7 % (11.5-14.5); White Blood Count 9.7 K/mm3 (4.5-10.0)
[2024-02-11 21:13] LABS: Alanine Aminotransferase 20 U/L (6-50); Albumin Level 4.2 g/dL (3.5-5.1); Alkaline Phosphatase 86 U/L (38-126); Anion Gap 10 mmol/L (4-12); Aspartate Amino Transferase 30 U/L (17-59); Bilirubin,Total 0.9 mg/dL (0.2-1.3); Blood Urea Nitrogen 18 mg/dL (9-20); CRP 1.1 mg/dL (<1.0); Calcium 8.9 mg/dL (8.4-10.2); Carbon Dioxide 25 mmol/L (22-30); Chloride 103 mmol/L (98-107); Estimated CRCL calculation 68 ml/min; Estimated Glomerular Filt Rate > 60; Glucose 106 mg/dL (65-110); Potassium 4.5 mmol/L (3.4-5.0); Sodium 138 mmol/L (137-145)
[2024-02-11 21:44] LABS: Erythrocyte Sedimentation Rate 13 mm/hr (0-20)
[2024-02-11] MEDS: CEPHALEXIN 500 MG CAPSULE PO (22:48)
[2024-02-11 22:50] VITALS: BP 138/87; PULSE 88; RESP 17; TEMP 36.9; O2SAT 98
== END 2024-02-11 22:50 | disposition home or self-care (01) ==
PROVIDERS: Emergency Provider Emergency Medicine
DX: A46 Erysipelas (principal); L03.90 Cellulitis, unspecified; G47.30 Sleep apnea, unspecified
CPT/HCPCS: 36415; 80053; 85025; 85652; 86140; 99283; A9270

== ENCOUNTER 2024-05-01 08:01 | Outpatient (CLI) | payer MEDICARE, SELFPAY ==
--- NOTE | ~2024-05-01 | DEXA_ITS ---
Bone Density Report Name: RUBI GLAVEZ Age: 69 Sex: Male Ethnicity: White Date of : 1955 Indication: history of glucocorticoids; cancer; Referring Provider: RUDOLPH FORREST Study: Bone densitometry was performed. Exam Date: May 01, 2024 Accession number: [id number] Bone Density: Region BMD T-score Z-score Classification AP Spine(L1-L4) 1.036 -0.5 0.3 Normal Femoral Neck (Left) 0.818 -0.8 0.3 Normal Total Hip (Left) 0.988 -0.3 0.3 Normal Femoral Neck (Right) 0.833 -0.7 0.4 Normal Total Hip (Right) 1.039 0.0 0.6 Normal Total Hip Mean 1.013 -0.2 0.5 Normal World Health Organization criteria for BMD impression classify patients as: Normal (T-score at or above -1.0), Osteopenia (T-score between -1.0 and -2.5), or Osteoporosis (T-score at or below -2.5). 10-year Fracture Risk: FRAX not reported because: All T-scores for Spine Total, Hip Total, Femoral Neck at or above -1.0 Clinical Information Provided by Patient: Smokes Has taken Glucocorticoids Has used the following medications: Vitamin D, Calcium Has the following medical conditions: Cancer Patient maximum height was 74 Drinks caffeinated beverages Impression: The patient has normal bone mass. The patient has risk factors, including: smoking, history of glucocorticoid therapy. Discussion: BONE DENSITY IS ABOVE THE MINIMUM DESIRABLE LEVEL AT ALL SKELETAL SITES TESTED. This patient?s bone mineral density is above the minimum desirable level (T-score -1.0 or better) at all sites measured. The patient should follow a healthful lifestyle (good nutrition with adequate calcium and vitamin D, and appropriate weight-bearing exercise). Follow-Up: Consider repeating this study in 5 years or sooner if there is some new clinical indication. Reported by: YONNY on 05/01/2024 9:18:00 AM. Reviewed, dictated and finalized at location [facility]
== END 2024-05-01 08:02 | disposition home or self-care (01) ==
LOC: ANHIMG 08:03
PROVIDERS: Visit Provider Internal Medicine Hematology & Oncology
DX: M85.89 Other specified disorders of bone density and structure, multiple sites (principal)
CPT/HCPCS: 77080

== ENCOUNTER 2025-03-11 09:11 | Outpatient (CLI) | payer MEDICARE, SELFPAY ==
[2025-03-11 09:22] LABS: Hematocrit 42.3 % (42.0-52.0); Hemoglobin 14.2 g/dL (14.0-18.0); Immature Granulocyte Percent A 0.3 % (0-0.5); Lymphocytes Absolute Auto 1.42 K/mm3 (0.9-3.2); Mean Corpuscular HGB Conc 33.6 g/dl (32-36); Mean Corpuscular Hemoglobin 31.7 pg (26-34); Mean Corpuscular Volume 94.4 fl (80-100); Nucleated Red Blood Cells Absolute Auto 0.000 K/mm3 (0.0-0.012); Nucleated Red Blood Cells Perc 0.0 % (0.0-0.2); Platelet Count Result 175 k/mm3 (150-375); Red Blood Count 4.48 M/mm3 (4.6-6.20); White Blood Count 6.6 K/mm3 (4.5-10.0)
[2025-03-11 09:26] LABS: Blood Urea Nitrogen 24 mg/dL (8-26); Carbon Dioxide 27 mmol/L (22-30); Chloride 106 mmol/L (98-109); Estimated Glomerular Filt Rate 55; Glucose 73 mg/dL (70-105); Ionized Calcium (POC) 1.20 mmol/L (1.11-1.31); Potassium 4.7 mmol/L (3.5-4.9); Sodium 142 mmol/L (138-146)
--- OUTSIDE RECORDS SUMMARY | 2025-03-11 09:44 | XMS_ITS | Clinical Summary ---
Author Organization [facility] [address] [place] [address] Care Team Providers Care Air Conditioner Installer Helper Name Role Phone Troy Ivonne ROMAN Primary Care Provider [phone] Biju Anglin M.A., MD Unavailable [phone] Allergies No known active allergies Medications aspirin 81 mg enteric coated tablet Take 81 mg by mouth daily Active atorvastatin (LIPITOR) 40 mg tablet Take 40 mg by mouth nightly Active glucosam/chondr/teodora agn/hyalur (glucosam-chond gw-clxxwc-nj ac) [phone] mg capsule Take 1 capsule by mouth daily Active cholecalciferol (VITAMIN D-3) 2000 unit tablet Take 2,000 Units by mouth daily Active Lacto.acidophilus-Bi f.animalis 32 billion cell capsule Take 1 tablet by mouth daily Active calcium-vitamin D3-vitamin K 500-100-40 mg-unit-mcg tablet,chewable Take 1 tablet by mouth daily Active carvediloL (COREG) 6.25 mg tablet Take 1 tablet (6.25 mg total) by mouth 2 (two) times a day with meals 60 tablet 11 1 Active warfarin (COUMADIN) 5 mg tabletIndications:Me chanical Valve Thromboembolism Prophylaxis Take 0.5 tablets (2.5 mg total) by mouth daily 90 tablet 1 1 Active Active Problems Problem Noted Date Diagnosed Date Aortic valve stenosis 07/21/2020 Overview (07/21/2020): Added automatically from request for surgery [id number] Coronary artery disease invo lving [place] heart without angina pectoris 07/21/2020 Overview (07/21/2020): Added automatically from request for surgery [id number] Encounters Date Type Department Care Team Description 01/17/2025 Documentation [facility] [address] [address] Xochitl West from Last 3 Months Surgical History Surgery Date Site/Laterality Comments CARDIAC CATHETERIZATION Medical History Medical History Date Comments Sleep apnea Coronary artery disease Aortic valve stenosis Hypertension Hyperlipidemia Family History Medical History Relation Name Comments ALS Father Stroke Father Heart disease Mother Sleep apnea Mother Relation Name Status Comments Father Mother Social History Tobacco Use Types Packs/Day Years Used Date Smoking Tobacco: Former Cigarettes Q uit: 08/06/1986 Smokeless Tobacco: Never Tobacco Cessation:Counseling Given: No Alcohol Use Standard Drinks/Week Comments Yes 4 (1 standard drink = 0.6 oz pur e alcohol) Sex and Gender Information Value Date Recorded Sex Assigned at Not on file 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 Gender Identity Not on file Sexual Orientation Not on file Obstetrics History Last Filed Vital Signs Vital Sign Reading Time Taken Comments Blood Pressure 127/62 01/23/2024 10:37 AM CDT Pulse 80 01/23/2024 10:37 AM CDT Temperature 36.7 C (98 F) 09/10/2020 3:19 PM CDT Respiratory Rate 14 01/23/2024 10:37 AM CDT Oxygen Saturation 98% 01/23/2024 10:37 AM CDT Inhaled Oxygen Concentration - - Weight 97.5 kg (215 lb) 01/23/2024 10:37 AM CDT Height 188 cm (6' 2) 01/23/2024 10:37 AM CDT Body Mass Index 27.6 01/23/2024 10:37 AM CDT Plan of Treatment Health Maintenance Due Date Last Done Comments Colon Cancer Screening-Colonoscopy 1955 Depression Screening 1957 Hepatitis C Screening 1957 Prostate Cancer Screening-PSA 1957 DTaP/Tdap/Td Vaccine (1 - Tdap) 1968 Hepatitis B Screening 1975 Pneumococcal vaccine 65+ (1 of 1 - PCV) 2007 Zoster Vaccine (1 of 2) 2007 Fall Risk Assessment 08/15/2021 08/15/2020 Abdominal Aortic Aneurysm (A AA) Screen 2022 Well Visit 65+ 2022 Influenza Vaccine (#1) 2025 , 05/09/2019, 03/19/2015 Medical Devices Implanted Type Area Braid Pattern Setter Device Identifier Shelf Expiration Date Model / Serial / Lot Valve Aortic On-X Conform-X Titanium Carbon Ptfe Od33 Mm Cylindrical H13.1 Mm H16.1 Mm Od23 Mm Odsec21.4 Mm Heart Mechanical Sewing Ring Extend [place] Intrasupra Annular - [id number] - [id number] Implanted:Qty: 1 on 08/10/2020 by Angelito Rosa MD at [facility] N/A: Heart On-X Intrnl 08/28/2024 [id number] / [id number] / Insurance [employer] [facility], [facility] MEDICARE Advance Directives For more information, please contact: [phone] * Full Code (Latest Code Status on File) Date Activated Date Inactivated Comments 08/10/2020 2:42 PM 08/15/2020 5:49 PM Care Teams Air Conditioner Installer Helper Relationship Specialty Start Date End Date Ivonne Simmons NP [address] [place] [id number] PCP - General Family Medicine 07/03/20 Biju Anglin M.A., MD [facility] [place] [address] Referring Physician Cardiovascular Disease 08/15/20
--- OUTSIDE RECORDS SUMMARY | 2025-03-11 09:44 | XMS_ITS | Clinical Summary ---
Author Organization [facility] Address [address] [place] [address] Phone Care Team Providers Care Rim Roller Setter Name Role Phone Provider, None Primary Care Provider Unavailabl e Allergies No known active allergies Medications warfarin (COUMADIN) 4 MG Tablet Take 8 mg by mouth every evening. Active carvedilol (COREG) 6.25 MG Tablet Take 6.25 mg by mouth 2 times daily. Active hydroCHLOROthi azide 25 MG Tablet Take 25 mg by mouth daily. Active amLODIPine (NORVASC) 5 MG Tablet Take 5 mg by mouth daily. Active losartan (COZAAR) 100 MG Tablet Take 100 mg by mouth daily. Active Zinc Sulfate (ZINC-220 PO) Take by mouth. A ctive acetaminophen (TYLENOL) 500 MG Tablet Take 1 Tablet by mouth every 6 hours as needed for Fever (for temperature greater than 100.4 F.). Do not exceed 4000 mg of acetaminophen in 24 hour from all sources. 0 3 Active ibuprofen (MOTRIN) 600 MG Tablet Take 1 Tablet by mouth every 6 hours as needed for Mild or more severe pain (for temperature greater than 100.4 F.). 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 Gender Identity Not on file Sexual Orientation Not on file Last Filed Vital Signs Vital Sign Reading Time Taken Comments Blood Pressure 139/79 06/22/2022 11:53 AM HEARING EXAMINER Pulse 63 06/22/2022 11:53 AM HEARING EXAMINER Temperature 36.1 C (97 F) 06/22/2022 11:53 AM HEARING EXAMINER Respiratory Rate 18 06/22/2022 11:53 AM HEARING EXAMINER Oxygen Saturation 96% 06/22/2022 11:53 AM HEARING EXAMINER Inhaled Oxygen Concentration - - Weight 98.9 kg (218 lb) 06/20/2022 11:00 AM HEARING EXAMINER Height 188 cm (6' 2) 06/20/2022 11:00 AM HEARING EXAMINER Body Mass Index 27.99 06/20/2022 11:00 AM HEARING EXAMINER Plan of Treatment Health Maintenance Due Date Last Done Comments Hepatitis C Virus (HCV) Screening 1955 TdaP Immunization 1957 Cologuard 2002 Colonoscopy 2002 Colorectal Cancer Screening 2002 Immunochemical Fecal Occult Blood 2002 Pneumococcal Immunization (5 0+ years) (1 of 1 - PCV) 2007 Zoster Immunization (1 of 2) 2007 Influenza Immunization (#1) 2025 11/0 07/2019, 05/09/2019, 03/19/2015 SARS-COV-2 Immunization (2 - season) 2025 10/13/2020 Respiratory Syncytial Virus (RSV) Immunization (Adult) (1 - 1-dose 75+ series) 2032 Hepatitis B Immunization Aged Out No longer eligible based on patient's age to complete this topic Human Papillomavirus (HPV) Immunization Aged Out No longer eligible b ased on patient's age to complete this topic Meningococcal Immunization (ACWY) Aged Out No longer eligible b ased on patient's age to complete this topic Rotavirus Immunization Aged Out No lo nger eligible based on patient's age to complete this topic Insurance MEDICARE C AETNA Care Teams Rim Roller Setter Relationship Specialty Start Date End Date Provider, None [place] PCP - General 06/21/22
--- OUTSIDE RECORDS SUMMARY | 2025-03-11 09:44 | XMS_ITS | Clinical Summary ---
Author Organization [facility] Leigha Hastings Address [address] [place] [address] Care Team Providers Care Retail Salesman Name Role Phone David Stern MD Primary Care Provider [phone] Allergies No known active allergies Medications ondansetron (ZOFRAN ODT) 4 mg Tablet, Rapid DissolveIndica tions:Prostate cancer (CMS/HCC) Take 1 Tablet (4 mg) by mouth every 8 hours as needed for Nausea/Emesis. Dissolve tablet on top of tongue, then swallow with saliva. 30 Tablet 3 3 Active lidocaine-pril ocaine (EMLA) 2.5-2.5 % CreamIndicatio ns:Prostate cancer (CMS/HCC) Apply to affected area see administration instructions. 30 Gram 3 3 Active amLODIPine (NORVASC) 10 mg tablet Take 10 mg by mouth daily. 3 Active carvediloL (COREG) 6.25 mg tablet Take 1 tablet (6.25 mg total) by mouth 2 (two) times daily. 3 Active Nubeqa 300 mg tablet 3 Active losartan (COZAAR) 100 mg tablet Take 100 mg by mouth daily. 3 Active Orgovyx 120 mg Tablet 3 Active tamsulosin (FLOMAX) 0.4 mg capsule Take 1 capsule (0.4 mg total) by mouth daily. 3 Active warfarin (COUMADIN) 4 mg tablet Take 8 mg by mouth daily. 3 Active warfarin (COUMADIN) 1 mg tablet take 1/2 tablet by mouth every Monday, MONDAY, & MONDAY at AT 5 PM along with 8mg tablet 3 Active sulfamethoxazo le-trimethopri m (BACTRIM DS) 800-160 mg tablet Take 1 Tablet by mouth 2 times daily. 14 Tablet 4 Active Active Problems No known active problems Encounters Date Type Department Care Team Description 03/11/2025 9:45 AM CDT Office Visit [facility] Oncology and Hematology [facility] [address] [place] [id number] Jorge Giron MD Prostate cancer (CMS/HCC) (Primary Dx) 03/10/2025 Orders Only [facility] Oncology and Hematology [facility] [address] [place] [address] Jorge Giron MD from Last 3 Months Family History Medical History Relation Name Comments No Known Problems Brother 1 Heart Disease Brother 2 No Known Problems Father Heart Disease Mother No Known Problems Sister No Known Problems Son 1 No Known Problems Son 2 No Known Problems Son 3 Relation Name Status Comments Brother 1 Alive Brother 2 Alive Father Mother Sister Alive Son 1 Alive Son 2 Alive Son 3 Alive Social History Tobacco Use Types Packs/Day Years Used Date Smoking Tobacco: Former Cigarettes 0.5 10 1 985 - 1994 Tobacco Cessation:Counseling Given: Not Answered Alcohol Use Standard Drinks/Week Comments Yes 2 (1 standard drink = 0.6 oz pur e alcohol) Sex and Gender Information Value Date Recorded Sex Assigned at Not on file 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 Gender Identity Not on file Sexual Orientation Not on file Last Filed Vital Signs Vital Sign Reading Time Taken Comments Blood Pressure 125/83 03/11/2025 9:33 AM CDT Pulse 72 03/11/2025 9:33 AM CDT Temperature 36 C (96.8 F) 03/11/2025 9:33 AM CDT Respiratory Rate 16 03/11/2025 9:33 AM CDT Oxygen Saturation 97% 03/11/2025 9:33 AM CDT Inhaled Oxygen Concentration - - Weight 101.2 kg (223 lb 3.2 oz) 03/11/2025 9:33 AM CDT Height 188 cm (6' 2) 12/23/2022 12:44 PM CDT Body Mass Index 28.66 12/23/2022 12:44 PM CDT Plan of Treatment Upcoming Encounters Date Type Department Care Team (Late st Contact Info) Description 03/11/2025 9:45 AM CDT Office Visit [facility] Oncology and Hematology - [place] [address] [place] [address] Jorge Giron MD [address] [facility] [address] [place] [address] Prostate cancer (CMS/HCC) (Primary Dx) Health Maintenance Due Date Last Done Comments Pre-Diabetes and Diabetes Screening 1957 DTAP/TDAP/TD VACCINES (1 - Tdap) 1976 COLORECTAL SCREENING 2002 Colorectal Cancer Screening 2002 FIT-DNA Q 3 years 2002 FIT/FOBT Q 1 year 2002 Flex Sig/CT Colonography Q 5 years 2002 PNEUMOCOCCAL VACCINE 50+ YEA RS (1 of 1 - PCV) 2007 ZOSTER VACCINE (1 of 2) 2007 Abdominal Aortic Aneurysm (AAA) Screening 2022 INFLUENZA VACCINE (#1) 2025 04/20/2020, 2018 COVID-19 Vaccine (2 - season) 2025 RSV VACCINE (60+ or ) (1 - 1-dose 75+ series) 2032 Procedures Procedure Name Priority Date/Time Associated Diagnosis Comments PSA Routine 2025 12:58 PM CDT from Last 3 Months Results * PSA (2025 12:58 PM CDT) Blood us Jorge Giron MD CHEMISTRY ORDERABLES Final Resu lt from Last 3 Months Insurance AETNA PPO MCR Care Teams Retail Salesman Relationship Specialty Start Date End Date David Stern MD [address] [place] [id number] PCP - General Family Practice 08/02/24
--- OUTSIDE RECORDS SUMMARY | 2025-03-11 09:44 | XMS_ITS | Encounter Summary ---
Author Organization [facility] [employer] [facility] Address [address] [place] [address] Care Team Providers Care Cashier Credit Name Role Phone David Stern MD Primary Care Provider [phone] Encounter Details Date Type Department Care Team ([facility] Contact Info) Description 03/10/2025 Orders Only [facility] Oncology and [facility] [address] [place] [address] Jorge Giron MD [facility] [employer] [address] [place] [phone] Social History Tobacco Use Types Packs/Day Years Used Date Smoking Tobacco: Former Cigarettes 0.5 10 1 985 - 1994 Alcohol Use Standard Drinks/Week Comments Yes 2 (1 standard drink = 0.6 oz pur e alcohol) Sex and Gender Information Value Date Recorded Sex Assigned at Not on file 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 Gender Identity Not on file Sexual Orientation Not on file documented as of this encounter Plan of Treatment Upcoming Encounters Date Type Department Care Team (Late Contact Info) Description 03/11/2025 9:45 AM CDT Office Visit [facility] Oncology [facility] [address] [place] [address] Jorge Giron MD [facility] [employer] [address] [place] [phone] Prostate cancer (CMS/HCC) (Primary Dx) documented as of this encounter Procedures Procedure Name Priority Date/Time Associated Diagnosis Comments PSA Routine 2025 12:58 PM CDT documented in this encounter Results * PSA (2025 12:58 PM CDT) Blood us Jorge Giron MD CHEMISTRY ORDERABLES Final Resu lt documented in this encounter Visit Diagnoses Not on filedocumented in this encounter Care Teams Cashier Credit Relationship Specialty Start Date End Date David Stern MD [address] [place] [address] PCP - General Family Practice 08/02/24 documented as of this encounter
--- OUTSIDE RECORDS SUMMARY | 2025-03-11 09:45 | XMS_ITS | Encounter Summary ---
Author Organization [facility] [employer] [facility] Address [address] [place] [address] Care Team Providers Care Presales Senior Specialist Name Role Phone David Stern MD Primary Care Provider [phone] Encounter Details Date Type Department Care Team (Late st Contact Info) Description 03/11/2025 9:45 AM CDT Office Visit [facility] Oncology and Hematology - [place] [address] [facility] [address] [place] [address] Jorge Giron MD [address] [facility] [address] [place] [address] Prostate cancer (CMS/HCC) (Primary Dx) Social History Tobacco Use Types Packs/Day Years Used Date Smoking Tobacco: Former Cigarettes 0.5 10 1 985 - 1994 Tobacco Cessation:Counseling Given: Not Answered Alcohol Use Standard Drinks/Week Comments Yes 2 (1 standard drink = 0.6 oz pur e alcohol) Sex and Gender Information Value Date Recorded Sex Assigned at Not on file 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 Gender Identity Not on file Sexual Orientation Not on file documented as of this encounter Last Filed Vital Signs Vital Sign Reading Time Taken Comments Blood Pressure 125/83 03/11/2025 9:33 AM CDT Pulse 72 03/11/2025 9:33 AM CDT Temperature 36 C (96.8 F) 03/11/2025 9:33 AM CDT Respiratory Rate 16 03/11/2025 9:33 AM CDT Oxygen Saturation 97% 03/11/2025 9:33 AM CDT Inhaled Oxygen Concentration - - Weight 101.2 kg (223 lb 3.2 oz) 03/11/2025 9:33 AM CDT Height - - Body Mass Index 28.66 12/23/2022 12:44 PM CDT documented in this encounter Plan of Treatment Scheduled Orders Name Type Priority Associated Diagnoses Orde r Schedule CBC WITH DIFFERENTIAL Lab Stat Prostate cancer (CMS/HCC) Expected: 07/01/2025, Expires: 03/11/2026 COMPREHENSIVE METABOLIC PANEL Lab Stat Prostate cancer (CMS/HCC) Expected: 07/01/2025, Expires: 03/11/2026 PSA Lab Routine Prostate cancer (CMS/HCC) Expected: 07/01/2025, Expires: 03/11/2026 documented as of this encounter Visit Diagnoses Diagnosis Prostate cancer (CMS/HCC)- Primary Malignant neoplasm of prostate documented in this encounter Care Teams Presales Senior Specialist Relationship Specialty Start Date End Date David Stern MD [address] [place] [address] PCP - General Family Practice 08/02/24 documented as of this encounter
[2025-03-11 10:45] LABS: Alanine Aminotransferase 20 U/L (6-50); Albumin Level 4.1 g/dL (3.5-5.1); Alkaline Phosphatase 85 U/L (38-126); Anion Gap 6 mmol/L (4-12); Aspartate Amino Transferase 32 U/L (17-59); Bilirubin,Total 0.5 mg/dL (0.2-1.3); Blood Urea Nitrogen 24 mg/dL (9-20); Calcium 8.9 mg/dL (8.4-10.2); Carbon Dioxide 27 mmol/L (22-30); Chloride 107 mmol/L (98-107); Estimated Glomerular Filt Rate > 60; Glucose 75 mg/dL (65-110); Potassium 4.7 mmol/L (3.4-5.0); Sodium 140 mmol/L (137-145); Total Protein 6.7 g/dL (6.3-8.2)
[2025-03-11 11:27] LABS: Prostate Specific Antigen < 0.1 ng/mL (< OR = 4.0)
== END 2025-03-11 09:12 | disposition home or self-care (01) ==
LOC: ANHLAB 09:12
PROVIDERS: Visit Provider Internal Medicine Hematology & Oncology
DX: C61 Malignant neoplasm of prostate (principal)
CPT/HCPCS: 36415; 80047; 80053; 84153; 85025